=== PATIENT | female | born 1980 | race African-American/Black ===

== ENCOUNTER 2019-11-21 19:34 | Emergency (ER) | payer OTHER ==
[~2019-11-21] VITALS: Ht 152.4 cm; Wt 104.3 kg
[2019-11-21 19:45] VITALS: TEMP 99.8
[2019-11-21 20:34] LABS: PLATELET COUNT 324 K/uL (152-353)
[2019-11-21 20:43] LABS: POTASSIUM 3.8 mmol/L (3.6-5.2)
[2019-11-21 21:34] LABS: PARTIAL THROMBOPLASTIN TIME 25.4 SECONDS (24.5-33.6)
[2019-11-22 00:45] VITALS: BP 150/84
== END 2019-11-22 00:45 | disposition home or self-care (01) ==
LOC: ED 19:34
PROVIDERS: Hospitalist
DX: N83.292 Other ovarian cyst, left side (principal)
CPT/HCPCS: 36415; 80053; 81000; 81025; 82150; 83690; 85027; 85610; 85730; 96361; 96365; 96375; 99284; J0696; J1170; J1885; J2405

== ENCOUNTER 2019-11-22 07:14 | Emergency (ER) | payer OTHER ==
[~2019-11-22] VITALS: Ht 154.9 cm; Wt 104.3 kg
[2019-11-22 07:21] VITALS: BP 180/93; TEMP 98.5
== END 2019-11-22 08:01 | disposition home or self-care (01) ==
LOC: ED 07:14
DX: R10.84 Generalized abdominal pain (principal); N83.292 Other ovarian cyst, left side
CPT/HCPCS: 99281

== ENCOUNTER 2021-03-18 13:30 | Outpatient (CLI) | payer OTHER | END 2021-03-18 19:05 | disposition home or self-care (01) | LOC: LABW 13:30 | PROVIDERS: ATTEND Family Medicine | DX: U07.1 COVID-19 (principal); R51.9 Headache, unspecified; J02.9 Acute pharyngitis, unspecified; J34.89 Other specified disorders of nose and nasal sinuses; Z11.52 Encounter for screening for COVID-19 | CPT/HCPCS: 87635; G2023; U0003 ==

== ENCOUNTER 2021-12-20 07:30 | Outpatient (CLI) | payer OTHER | END 2021-12-20 18:59 | disposition home or self-care (01) | LOC: LABW 07:30 | PROVIDERS: ATTEND Family Medicine | DX: R19.7 Diarrhea, unspecified (principal); W19.XXXA Unspecified fall, initial encounter | CPT/HCPCS: 82272 ==

== ENCOUNTER 2022-02-27 06:26 | Outpatient (CLI) | payer OTHER | END 2022-02-27 18:57 | disposition home or self-care (01) | LOC: RAD 06:26 | PROVIDERS: ATTEND Family Medicine | DX: M54.89 Other dorsalgia (principal); M79.671 Pain in right foot ==